=== PATIENT | male | born 1980 | race Two or more races ===

== ENCOUNTER 2017-05-17 06:00 | Day surgery (SDC) | payer OTHER ==
--- NOTE | 2017-05-16 20:59 | Pre-Procedure Note/Attestation ---
Pre-Procedure Note/Attestation Complete Prior to Procedure Planned Procedure: not applicable Procedure Narrative: 1. Open reduction internal fixation nasal fracture 2. Septoplasty 3. Submucous resection right inferior turbinate 4. Submucous resection left inferior turbinate Indications for Procedure Pre-Operative Diagnosis: 1. Nasal fracture 2. Nasal septal deviation 3. Hypertrophied right inferior turbinate 4. Hypertrophied left inferior turbinate Attestation I attest that I discussed the nature of the procedure; its benefits; risks and complications; and alternatives (and the risks and benefits of such alternatives ), prior to the procedure, with the patient (or the patient's legal membership sales representative). I attest that, if there was a reasonable possibility of needing a blood transfusion, the patient (or the patient's legal membership sales representative) was given the [facility] standardized written summary, pursuant to the [place] Blood Safety Act ([place] Health and Safety Code # 1645, as amended). I attest that I re-evaluated the patient just prior to the surgery and that there has been no change in the patient's H&P, job # [id number] Does not need pre op labs, CXR, EKG. JENNIFER LEDESMA May 16, 2017 20:59
--- NOTE | 2017-05-16 21:08 | General Progress Note ---
Subjective Allergies: Coded Allergies: No Known Allergies (Unverified , 05/16/17) JENNIFER LEEDSMA May 16, 2017 21:08
[2017-05-17] VITALS (14 sets, daily range): BP systolic 118–147; BP diastolic 46–93
[~2017-05-17] VITALS: Ht 170.2 cm; Wt 81.6 kg
--- NOTE | 2017-05-17 02:15 | Pre-op HX & Phy Repo 2 SIG ---
DATE OF ADMISSION: 05/17/2017 NOTE: "POOR AUDIO QUALITY" DATE OF SURGERY: 05/17/2017 INDICATIONS FOR SURGERY: This is a 37-year-old male, who 6 months ago broke his nose, had closed reduction, and did not feel well. He has difficulty breathing. He was noted to have a bump on his nose, hypertrophied right and left turbinates. He failed nasal steroids and antihistamines. He presents for open reduction and internal fixation of nasal fracture, septoplasty, and submucous resection of right and left inferior turbinates. PAST MEDICAL HISTORY: unremarkable PAST SURGICAL HISTORY: Closed reduction of nasal fracture. PREVIOUS MEDICATIONS: None. ALLERGIES: No known drug allergies. SOCIAL HISTORY: He is single. No children. He is an estate attorney. PHYSICAL EXAMINATION: VITAL SIGNS: Height _5 feet 8 inches 180 pounds. HEENT: Head normocephalic. Eyes, PERRLA, EOMI. Lips, tongue, and neck all normal. Nose, bump and septal deviation and hypertrophy of right and left inferior turbinates. HEART: Normal S1 and S2. No murmur, bruit, gallop, or rub. ABDOMEN: Soft and nontender. Normoactive bowel sounds. EXTREMITIES: Grossly normal. NEUROLOGIC: Cranial nerves II through XII grossly normal. ASSESSMENT: nasal fracture, septal deviation, hypertrophied right and left inferior turbinates. PLAN: pre and postoperative care, and is stable for surgery today. He does not need labs. He is otherwise a healthy individual. Kimani Dunn M.D. DR: Wil JOB#: [id number] CC: SANIA
[~2017-05-17 06:00] MED LIST: NKM
[2017-05-17] MEDS ORDERED: Cocaine HCl 4% 4ml vial TOPIC ONE (06:26)
[2017-05-17] MEDS ORDERED: Lidocaine 1% 10mg/ml/Epi 0.005mg/ml 30ml vial INJ ONE (06:28)
[2017-05-17] MEDS ORDERED: Bupivacaine 0.5% Inj 30 ml vial INJ ONE (06:29)
[2017-05-17] MEDS ORDERED: Dexamethasone 4mg/ml vial IVP ONE (07:00)
[2017-05-17] MEDS ORDERED: ceFAZolin sod 1 GM in D5W 55 ML IV ONE (07:20)
[2017-05-17] MEDS ORDERED: NS Irrig 1000ml ONE (07:30)
[2017-05-17] MEDS ORDERED: Metoclopramide 10mg/2ml Inj ONE (07:30)
[2017-05-17] MEDS ORDERED: Ketorolac 30mg Inj ONE (07:30)
[2017-05-17] MEDS ORDERED: Dexamethasone 4mg/ml vial ONE (07:30)
[2017-05-17] MEDS ORDERED: Sterile Water Irrig 1000ml IRRIG ONE (07:30)
[2017-05-17] MEDS ORDERED: fentaNYL 100 mcg/2 mL IV ONE (07:30)
[2017-05-17] MEDS ORDERED: Propofol 200mg/20ml IV ONE (07:30)
[2017-05-17] MEDS ORDERED: Midazolam 2mg/2ml Inj ONE (07:30)
[2017-05-17] MEDS ORDERED: LR 1000ml ONE (07:30)
[2017-05-17] MEDS ORDERED: Glycopyrrolate 0.2mg/ml 1ml Vial ONE (07:30)
--- NOTE | 2017-05-17 08:28 | Brief Operative Note ---
Immediate Post Operative Note Operative Note Pre-op Diagnosis: 1. Nasal fracture 2. Nasal septal deviation 3. Hypertrophied right inferior turbinate 4. Hypertrophied left inferior turbinate Procedure: ORIF nasal fracture Septoplasty SMR bilateral inferior turbinates Post-op Diagnosis: same as pre-op Surgeon: Jennifer Dunn [employer] Worker: none Additional Surgeons: none Anesthesiologist: Catina Anesthesia: general Specimen: none Complications: none Condition: stable Fluids: D5LR Estimated Blood Loss: volume - 100 cc Drains: none Packing: Stamberger nasal gel Implant(s) used?: JENNIFER Posada May 17, 2017 08:28
--- NOTE | 2017-05-17 08:37 | Discharge Instructions ---
Discharge Instructions Discharge Instructions Follow up with: next week with Dr. Ledesma at his ofice-pt has appt already Diet: regular Resume Normal Activity?: No Activity: light activity Pneumonia Vaccine: pt refused vaccine Influenza Vaccine (Feb to Jul): pt refused vaccine Follow Up Orders pt was given pre and post op instruction printed last week in my office during his pre op visit. Also given Rx for Amoxicillin and [place] to use post op. Return to Work/School on: May 31, 2017 Special Instructions ice to face for 48 hours For Surgical Patients May shower: No Contact your physician for: bleeding, pain, tenderness, redness, swelling, yellowish discharge in the op. site For Congestive Heart Failure Reminder Report to your physician any weight gain of 5 pounds or more in one week. JENNIFER LEDESMA May 17, 2017 08:37
[2017-05-17] MEDS ORDERED: LR 1000ml 1,000 ML IVLG SCH (08:40)
--- NOTE | 2017-05-17 08:43 | Anethesia Preoperative Eval ---
Anesthesia Pre-op PMH/ROS General Date of Evaluation: May 17, 2017 Time of Evaluation: 07:30 Anesthesiologist: MIRIAM ASA Score: ASA 2 Mallampati Score Class I : Soft palate, uvula, fauces, pillars visible Class II: Soft palate, uvula, fauces visible Class III: Soft palate, base of uvula visible Class IV: Only hard plate visible Mallampati Classification: Class I Surgeon: BALTAZAR Diagnosis: Buccal Biopsy Surgical Procedure: Buccal Biopsy Anesthesia History: none Family History: no anesthesia problems Allergies: Coded Allergies: No Known Allergies (Unverified , 05/16/17) Medications: see eMAR Anesthesia Pre-op Phys. Exam Physician Exam Last Vital Signs Date Time Temp Pulse Resp B/P (MAP) Pulse Ox O2 Delivery O2 Flow Rate FiO2 05/17/17 08:35 78 18 147/89 100 Simple Mask 6.0 05/17/17 08:25 97.4 Constitutional: NAD Neurologic: CN 2-12 intact Cardiovascular: RRR Respiratory: CTA Gastrointestinal: S/NT/ND Airway Exam Mallampati Score: Class II MO: full ROM: full Teeth: intact Anesthesia Pre-op A/P Risk Assessment & Plan Plan: GA Pre-Antibiotics Drug: Ancef Given Within 1 Hr of Incision: Yes Time Given: 07:40 Jose Roberto Dominique M.D. May 17, 2017 08:43
[2017-05-17] MEDS ORDERED: Metoclopramide 10mg/2ml Inj IVP PRN ×2 (08:45→16:01)
[2017-05-17] MEDS ORDERED: Morphine Sulfate 2mg/ml Inj IVP PRN ×2 (08:45→08:50)
[2017-05-17] MEDS ORDERED: Midazolam 2mg/2ml Inj IVP PRN (08:45)
[2017-05-17] MEDS ORDERED: fentaNYL 100 mcg/2 mL IV PRN (08:45)
[2017-05-17] MEDS ORDERED: Ketorolac 30mg Inj IV PRN (08:45)
--- NOTE | 2017-05-17 08:45 | Immediate Post-Op Evaluation ---
Immediate Post-Op Evalulation Immediate Post-Op Evalulation Procedure: Septoplasty Date of Evaluation: May 17, 2017 Time of Evaluation: 08:44 IV Fluids: 1000 Blood Products: 0 Estimated Blood Loss: 100 Urinary Output: 0 Blood Pressure Systolic: 134 Blood Pressure Diastolic: 79 Pulse Rate: 81 Respiratory Rate: 16 O2 Sat by Pulse Oximetry: 99 Temperature (Fahrenheit): 98 Pain Score (1-10): 0 Nausea: No Vomiting: No Patient Status: awake, reacts, patent Hydration Status: adequate Drug: Anncef Given Within 1 Hr of Incision: Yes Time Given: 07:40 Jose Roberto Dominique M.D. May 17, 2017 08:45
[2017-05-17] MEDS ORDERED: Norco 5mg/325mg tab ORAL PRN (16:01)
[2017-05-17] MEDS ORDERED: HYDROmorphone 1mg/ml Carpuject SUBQ PRN (16:01)
--- NOTE | 2017-05-18 10:30 | Operative Note - Dictated ---
DATE OF OPERATION: 05/17/2017 SURGEON: Kimani Dunn M.D. EMPLOYEE REPRESENTATIVE: None. ANESTHESIOLOGIST: Dr. Palma. ANESTHESIA: General LMA as well as 20 mL of 50:50 mixture of 1% lidocaine with 1/100,000 epinephrine and Marcaine 0.5% with 1:200,000 epinephrine. INDICATION FOR SURGERY: The patient who fractured his nose seven months ago had a closed reduction elsewhere, did not take, still has difficulty breathing through his nose. Nasal bumping was not present prior to the injury. PREOPERATIVE DIAGNOSIS: The patient who fractured his nose seven months ago had a closed reduction elsewhere, did not take, still has difficulty breathing through his nose. Nasal bumping was not present prior to the injury. POSTOPERATIVE DIAGNOSIS: The patient who fractured his nose seven months ago had a closed reduction elsewhere, did not take, still has difficulty breathing through his nose. Nasal bumping was not present prior to the injury. FINDINGS: Nasal fracture with a large bump off to his left septal deviation, off to the left, mainly vomer blockage that had been displaced and hypertrophied right and left inferior turbinates. PROCEDURE: 1. ORIF, nasal fracture. 2. Septoplasty. 3. Submucous resection of left inferior turbinate. 4. Submucous resection of the right inferior turbinate. TECHNIQUE: The patient was prepped and draped in usual manner. Time-out was performed, all agreed as to what was to be done. Proper equipment was in the room. Initially, a [place] incision was made on the left hand side of the septum over the vomer with a 15 blade. Elevated with a [place] elevator the periosteum and perichondrium. I then used a gouge osteotome to remove the vomer on the left hand side. Lower 3 mm of the septum was removed leaving a centimeter inferiorly. Then sewn back together with one 4-0 plain suture. I then proceeded to address the left inferior turbinate, incision with a 15 blade, elevated submucosally with a [place] elevator. I then placed a radiofrequency wand coated with saline gel x2 for 10 seconds and outfractured with Bo[place] elevator. I then turned my attention to the contralateral inferior turbinate. Incision was made with a 15 blade anterior inferior position, elevated submucosally with a [place] elevator. I then proceeded to use radiofrequency to shrink mucosa after coating it with saline gel. Outfractured with a [place] elevator. Between the cartilage, incision was made with a 15 blade. Elevated with a [place] elevator and angled scissors anteriorly. I then proceeded to use a gouge osteotome to remove the anterior fracture and then partial and low full osteotomies from the middle and low side. Nose was then completely fractured. No greenstick. Fracture was a complete fracture. Nose moved freely. It was repositioned. Tape and stent were then placed. Nose was then suctioned. Stammberger nasal gel placed on either nostril, total of one syringe. COUNTS: Sponge and needle count was correct. ESTIMATED BLOOD LOSS: 100 mL. COMPLICATIONS: None. DRAINS: None. Stammberger nasal gel was used though. Mustache dressing was placed. Twenty minutes later in the recovery room, the patient was stable. No significant bleeding. Kimani Dunn M.D. DR: ALBERTO JOB#: [id number] CC: SANIA
== END 2017-05-17 10:30 | disposition home or self-care (01) ==
LOC: SUR 06:00
DX: S02.2XXG Fracture of nasal bones, subsequent encounter for fracture with delayed healing (principal); X58.XXXD Exposure to other specified factors, subsequent encounter; J34.2 Deviated nasal septum; J34.3 Hypertrophy of nasal turbinates
CPT/HCPCS: 21336; 30140; 30520; J0690; J1100; J1885; J2250; J2270; J2405; J2704; J2765; J3010; J3490; J7120; 94003; 94150